=== PATIENT | male | born 2005 | race Caucasian/White ===

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

== ENCOUNTER 2024-02-28 11:22 | Emergency (ER) | payer OTHER, SELFPAY ==
--- NOTE | ~2024-02-28 | XR_ITS ---
EXAMINATION: XR shoulder LT min 2V DATE: 02/28/2024 13:07 INDICATION: Right shoulder injury after lifting weights TECHNIQUE: AP internally and externally rotated, AP oblique externally rotated and transscapular Y vi ews of the left shoulder were obtained. COMPARISON: None FINDINGS: Normal alignment. No fracture. Glenohumeral joint is normal. Acromioclavicular joint is normal. Soft tissues are unremarkable. Visualized portion of the lungs are clear. IMPRESSION: Normal left shoulder radiographs. Reviewed, dictated and finalized at location B. ROFIT DIRECTOR
[2024-02-28 11:41] VITALS: BP 151/79; PULSE 51; RESP 16; TEMP 37.2; O2SAT 100
--- NOTE | 2024-02-28 12:57 | ED_ITS ---
HPI - Extremity Injury (Upper) General Chief Complaint: Extremity Injury, Upper Stated Complaint: Shoulder Pain Time Seen by Provider: 02/28/24 12:57 Source: patient, RN notes reviewed and old records reviewed Mode of arrival: ambulatory Limitations: no limitations History of Present Illness HPI narrative: 18-year-old male who presents to [facility] with complaints of pain to the left upper arm and anterior shoulder since yesterday after lifting weights.Patient reports that he was lifting weights overhead with wide bar and after 4th rep he felt sharp pain to his left shoulder so he stopped his workout. Patient reports some radiation of pain to left upper arm when he moves his shoulder. Patient has full ROM of left shoulder but with some discomfort, circulation ans sensation intact left arm. Patient denies any neck pain. Patient is right hand dominant. MD complaint: injury to: shoulder (left) Onset (ago): day(s) (2) Other Extremity Injury: Left: shoulder (anterior) Other injuries: none Handedness: right Severity scale (1-10): 4 Treatments prior to arrival: cold therapy and other (Tylenol) Related Data Allergies Allergy/AdvReac Type Severity Reaction Status Date / Time ibuprofen AdvReac Severe throat Verified 02/28/24 12:49 swelling Review of Systems Review of Systems: CONSTITUTIONAL: Denies fever, chills, or sweats. EYES: Denies visual changes, redness, or discharge. ENT: Denies rhinorrhea, congestion, sore throat, or otalgia. CARDIOVASCULAR: Denies chest pain, palpitations, or edema. RESPIRATORY: Denies cough or dyspnea. GASTROINTESTINAL: Denies abdominal pain, nausea, vomiting, or diarrhea. GENITOURINARY: Denies dysuria or hematuria. SKIN: Denies rash or itching. MUSCULOSKELETAL: Denies back pain,positive for pain to left shoulder, or myalgia. NEUROLOGIC: Denies headache, numbness, or weakness. PSYCHIATRIC: Denies anxiety or depression. All systems reviewed & are unremarkable except as noted in HPI and below PMFSH Past Medical History Medical History Screening for hypothyroidism Encounter for wellness examination BMI 29.0-29.9,adult Attention deficit disorder (ADD), child, with hyperactivity Family History Family History Father ADHD Mother No problems noted. Sibling Anxiety Social History Social History Smoking status: Never smoker Second hand tobacco smoke exposure: No Alcohol intake: never Substance use: never Substance use type: does not use Do You Feel Safe in your Home?: Yes Lack of Transportation: No Lack of Food: Never True Current Housing: I Have Housing Concerned About Future Housing: No Difficulty Paying Gas/Electric Bills: No Difficulty Paying for Meds: No Currently Unemployed: No Education: High School Diploma/GED Difficulty w/ Childcare or Family Care: No Living arrangements: with family Occupation/Education: student Gender identity (if verbalized by the patient): Male Sexual Orientation (if Verbalized by the Patient): Straight or Heterosexual Comments At time of signature, agree with nursing past medical, surgical, social and family history. There is no relevant family history pertinent to the presenting complaint Exam Narrative: GENERAL: Well-appearing, well-nourished, and in no acute distress. HEAD: Normocephalic, atraumatic. EYES: PERRLA and EOMI. ENT: Nares clear, no rhinorrhea or epistaxis. Mucous membranes moist. NECK: Supple. no pain with movement of neck, no lymphadenopathy CHEST: Clear to auscultation. No respiratory distress.SAO2 100% on room air HEART: Regular rate and rhythm. No murmur heard. Normal peripheral pulses. ABDOMEN: Soft, nontender, nondistended, normal active bowel sounds. EXTREMITIES: Normal range of motion. No edema. CSM intact to left arm with some pain noted with movements of left shoulder, no acute swelling or redness or any bruising present to left anterior shoulder. Patient reports no tingling or numbness to left arm or fingers. SKIN: Warm, dry, no rash. NEURO: No focal deficits. Alert and oriented x3. Course Course Emergency Course: Patient is aware of diagnosis, understands and agrees to treatment plan.? Anticipatory guidance given.? Patient agrees to follow-up as directed and is aware of reasons to seek care at the emergency department. Portions of this record may have been created with voice recognition software Level of Care: Express Care Visit Vital Signs Vital signs: Vital Signs Temperature 37.2 C 02/28/24 11:41 Pulse Rate 51 L 02/28/24 11:41 Respiratory Rate 16 02/28/24 11:41 Blood Pressure 151/79 H 02/28/24 11:41 Pulse Oximetry 100 02/28/24 11:41 Temperature 37.2 C 02/28/24 11:41 Pulse Rate 51 L 02/28/24 11:41 Respiratory Rate 16 02/28/24 11:41 Blood Pressure 151/79 H 02/28/24 11:41 Pulse Oximetry 100 02/28/24 11:41 Reviewed MDM - Extremity Injury (Upper) Differential Diagnosis Differential diagnosis: Likely dislocation of shoulder and other (left shoulder strain, left shoulder tendonitis) Medical Records Attestation: I reviewed the patient's medical records. Imaging Data Attestation: I personally reviewed and interpreted this imaging study as follows: My impression: Normal left shoulder radiographs Radiologist's impression: [facility] Ruffin [address] [place] [address] [place] [address] XRay Report Signed Patient: Dione Boudreaux : 2005 MR#: [id number] Age: 18 Acct:[id number] Loc: [id number] ADM Date: 02/28/24Attending Dr: Ordering Physician: Princess Apodaca APRN Date of Service: 02/28/24 Procedure(s): XR shoulder LT min 2V Accession Number(s): [id number] cc: WEB PORTAL DEVELOPER PHYSICIAN; Princess Apodaca APRN~ EXAMINATION: XR shoulder LT min 2V DATE: 02/28/2024 13:07 INDICATION: Right shoulder injury after lifting weights TECHNIQUE: AP internally and externally rotated, AP oblique externally rotated and transscapular Y views of the left shoulder were obtained. COMPARISON: None FINDINGS: Normal alignment. No fracture. Glenohumeral joint is normal. Acromioclavicular joint is normal. Soft tissues are unremarkable. Visualized portion of the lungs are clear. IMPRESSION: Normal left shoulder radiographs. Reviewed, dictated and finalized at location B. TRY FARMWORKER Dictated By: Viral Hall MD 02/28/24 1309 Signed By: <Electronically signed by Viral Hall MD in OV> Critical Care Time Critical Care Time Critical Care Time: No Discharge Plan Discharge Clinical Impression: Muscle strain of left shoulder Patient Disposition: Home, Self-Care Condition: Stable Instructions: Muscle Strain (ED) Additional Instructions: Tylenol for pain prednisone 20 mg twice daily with food for the next 5 days Follow-up with orthopedic surgeon on-call if no improvement in your shoulder Dr. Barraza ortho hotel or motel receptionist [phone] Follow-up with PCP if further problems or concerns Ice to the area 20-30 minutes 4-6 times a day Elevate above heart muscle relaxer at bedtime do not drive while taking this medication If your symptoms persist, change or worsen significantly before you can contact your personal physician then please, without delay, go to the emergency department for further evaluation. Follow-up with PCP in 7-10 days or sooner if needed Follow up with PCP soon in regards to your blood pressure which is elevated above threshold for referral. Blood pressure above 120/80 may indicate pre- hypertension. Patient Language: Burkinan Prescriptions: New prednisone 20 mg tablet 20 mg PO BID Qty: 10 0RF Rx Instructions: take AM and early PM with food cyclobenzaprine 10 mg tablet 10 mg PO HS PRN (Reason: muscle spasm) Qty: 10 0RF Follow-up/Referrals: PHYSICIAN,WEB PORTAL DEVELOPER [Primary Care Provider] - Viral Barraza MD [Physician] - 1 Week (patient has left anterior shoulder pain after lifting weights with some radiation of discomfort to left arm x-ray done. Placed on oral Prednisone and Flexeril at night. He is allergic to Ibuprofen.) Time of Disposition: 13:25 Quality [place] Coma Scale Eyes: Open Verbal: Oriented and Alert Motor: Follows Commands Shanika Coma Total Score: 15
== END 2024-02-28 13:27 | disposition home or self-care (01) ==
PROVIDERS: Emergency Provider Registered Nurse
DX: S46.912A Strain of unspecified muscle, fascia and tendon at shoulder and upper arm level, left arm, initial encounter (principal); X50.3XXA Overexertion from repetitive movements, initial encounter; Y93.B3 Activity, free weights
CPT/HCPCS: 73030; 99213; G0463